=== PATIENT | female | born 1975 | race Caucasian/White ===

== ENCOUNTER 2016-12-20 20:47 | Inpatient (IN) | payer OTHER ==
[~2016-12-20] VITALS: Ht 160 cm; Wt 83.9 kg
--- NOTE | 2016-12-20 21:05 | RAD ---
PROCEDURE CT head without intravenous contrast. HISTORY Stroke protocol, nonverbal, left-sided weakness. TECHNIQUE Axial images are obtained of the head from the skull base through the vertex without IV contrast Exposure: One or more of the following individualized dose reduction techniques were utilized for this examination: 1. Automated exposure control. 2. Adjustment of the mA and/or kV according to patient size. 3. Use of iterative reconstruction technique. COMPARISON None. FINDINGS The ventricles are appropriate in size, shape, and location for the patient's age.No obvious intracranial mass, mass-effect, midline shift, hemorrhage or obvious acute infarction is identified.Basilar cisterns are patent. Bone windows demonstrate no acute calvarial abnormality.The visualized paranasal sinuses appear clear. IMPRESSION 1. No acute intracranial process. Please note that CT can be relatively insensitive to acute ischemic infarction for up to 24 hours after symptom onset. 2. Results phoned to emergency department staff, Dr. Spangler, at 2103 hours. Electronically signed by: Ralph Owens MD (Dec 20, 2016 21:03:59)
[2016-12-20 21:19] LABS: BASO # 0.1 x10^3/uL (0.0-0.2); BASO % 1 % (0-3); EOS % 1 % (0-3); HEMATOCRIT 45.4 % (36.0-47.0); HEMOGLOBIN 15.5 g/dL (12.0-15.5); LYMPH % 34 % (24-48); MEAN CORPUSCULAR HEMOGLOBIN 32 pg (25-35); MEAN CORPUSCULAR HGB CONC 34 g/dL (31-37); MEAN CORPUSCULAR VOLUME 92 fL (79-100); MONO % 6 % (0-9); NEUT % 58 % (31-73); PLATELET COUNT 290 x10^3/uL (140-400); RED BLOOD COUNT 4.92 x10^6/uL (3.50-5.40); RED CELL DISTRIBUTION WIDTH 13.5 % (11.5-14.5); WHITE BLOOD COUNT 11.8 x10^3/uL (4.0-11.0)
[2016-12-20 21:26] LABS: INR 0.9 (0.8-1.1)
[2016-12-20 21:41] LABS: CALCIUM 9.1 mg/dL (8.5-10.1); CREATININE 0.8 mg/dL (0.6-1.0); GFR 79.4; POTASSIUM 3.6 mmol/L (3.5-5.1)
[2016-12-20 21:48] LABS: ALBUMIN 3.7 g/dL (3.4-5.0); ALBUMIN/GLOBULIN RATIO 0.9 (1.0-1.7); TOTAL BILIRUBIN 0.1 mg/dL (0.2-1.0); TOTAL PROTEIN 7.6 g/dL (6.4-8.2)
[2016-12-20] MEDS ORDERED: IV NORMAL SALINE 1000ML BAG 1,000 ML IV ONE (22:15)
[2016-12-20] MEDS: fentaNYL PF VIAL 100 MCG/2 ML VIAL IV PRN (22:58)
[2016-12-20] MEDS ORDERED: CONTRAST GIVEN MC PRN (23:15)
[2016-12-20] MEDS ORDERED: IOHEXOL 350 MG/ML 100 ML VIAL. IV ONE (23:30)
--- NOTE | 2016-12-20 23:31 | ACF ---
Admission Forms Criteria NEUROLOGY GRG Clinical Indications for Admission to Inpatient Care (Place ' X' for any and all applicable criteria): Hospital admission is needed for appropriate care of the patient because of 1 or more of the following: [ ]I. Encephalitis [ ]II. Severe [employer] infections indicated by 1 or more of the following(1)(2)(3) : [ ]a) Intracranial abscess [ ]b) Spinal abscess or myelitis [ ]c) Tuberculous or other nonbacterial, nonviral [employer] infection(8) [ ]III. Vasculitis and 1 or more of the following(14)(15): []a) Altered mental status that is severe or persistent or other acute neurologic change []b) Psychosis []c) Seizure [ ]IV. Status epilepticus or repetitive seizures not controlled with emergent treatment [A] (7)(8) [ ]V. Altered mental status that is severe or persistent [ ]. Transient alteration in consciousness with high-risk etiology; examples include (12)(13): [ ]a) Cardiovascular source [ ]b) Cataplexy [ ]VII. Cerebral aneurysm requiring ANY ONE of the following(14): [ ]a) IV antihypertensives or vasoactive agents [ ]b) Sedation and analgesia for suspected leak [ ]c) Need for external ventricular drainage and cerebral perfusion pressure monitoring [ ]d) Emergent evaluation to determine need for surgical clipping or endovascular coiling by interventional radiology. If surgery is required ( Also use Craniotomy, Supratentorial, for Surgery of Bleeding Intracranial Aneurysm (for bleeding aneurysm) or Craniotomy, Supratentorial (for nonbleeding aneurysm) as appropriate. [X]VIII. New-onset severe neurologic symptom requiring inpatient care indicated by ANY ONE of the following: [ ]a) Aphasia(15) [X]b) Weakness (grade 3 or less) [ ]c) Paralysis (eg, hemiplegia) [ ]d) Spasticity(16) [ ]e) Dystonia [ ]e) Ataxia(17) [ ]f) Amnesia(18) [ ]g) Involuntary movements(19) [ ]h) Vertigo [ ] Visual loss [ ]i) Other severe neurologic finding (eg, papilledema, mass effect on imaging, myoclonus not treatable at alternative level of care (eg, observation care) [ ]IX. Guillain-[place] syndrome(20) [ ]X. Myasthenia gravis crisis or inpatient monitoring need as indicated by 1 or more of the following(21): [ ]a) Intensive treatment (eg, course of plasmapheresis) with inadequate outpatient situation to monitor patients status [ ]b) Inadequate airway protection [ ]c) Respiratory insufficiency requiring intubation or inpatient. monitoring [ ]d) Progressive dysphagia with failure to thrive [ ]XI. Multiple sclerosis or other acute demyelinating disease requiring inpatient care as indicated by 1 or more of the following (22)(23): [ ]a) Acute severe deterioration requiring inpatient treatment (eg, IV steroids, plasmapheresis, close observation) [ ]b) Acute complication requiring inpatient care (eg, sepsis, severe decubitus, aspiration) [ ]XII.Parkinson disease requiring inpatient care (Also use Optimal Recovery Care Criteria or General Recovery Criteria as appropriate) indicated by 1 or more of the following(25): [ ]a) Infection (eg, aspiration pneumonia) not treatable at alternative level of care [ ]b Dehydration that is severe or persistent [ ]c) Life-threatening agitation or psychotic behavior not treatable on emergency, observation care, or alternative level (eg, residential) basis [ ]d) Severe medication withdrawal effects (eg, freezing, neuroleptic malignant syndrome) not responsive to emergency and observation care treatment ( as appropriate) [ ]e) Other severe manifestation not treatable at alternative level of care [ ]XII. Amyotrophic lateral sclerosis with inpatient care needs as indicated by ANY ONE of the following(26): [ ]a) Acute complications (eg, aspiration pneumonia, sepsis ) requiring inpatient care ( see other optimal Recovery Guideline as appropriate) [ ]b) Dehydration that is severe persistent AND artificial support desired [ ]c) Inadequate airway protection AND artificial support desired [ ]d) Severe ventilatory insufficiency AND artificial support desired [ ]XIII. Myasthenia gravis crisis or inpatient monitoring need as indicated by 1 or more of the following(21): [] a) Inadequate airway protection []b) Respiratory insufficiency requiring intubation or inpatient monitoring []c) Progressive dysphagia with failure to thrive []d) Intensive treatment (e.g., course of plasmapheresis) with inadequate outpatient situation to monitor patients status [ ]XIV. Multiple sclerosis or other acute demyelinating disease requiring inpatient care indicated by 1 or more of the following[C](36)(43)(44)(45)(46): []a) Acute severe deterioration requiring inpatient treatment (eg, IV steroids, plasmapheresis, close observation) []b) Acute complication requiring inpatient care (eg, sepsis, severe decubitus, aspiration) [ ]XV. Intracranial hypertension (e.g., pseudotumor cerebri) requiring inpatient care (e.g., acute visual loss, inadequate oral intake) (47)(48)(49) [ ]XVI. Parkinson disease requiring inpatient care (Also use Optimal Recovery Care Criteria or General Recovery Criteria as appropriate) indicated by 1 or more of the following(25): [] a) Infection (e.g., aspiration pneumonia) not treatable at alternative level of care []b) Volume depletion not responsive to emergency and observation care treatment (as appropriate) []c) Life-threatening agitation or psychotic behavior not treatable on emergency, observation care, or alternative level (e.g., residential) basis []d) Severe medication withdrawal effects (e.g., freezing, neuroleptic malignant syndrome) not responsive to emergency and observation care treatment (as appropriate) []e) Other severe manifestation not treatable at alternative level of care [ ]XVII. Amyotrophic lateral sclerosis with inpatient care needs as indicated by1 or more of the following(42): []a) Acute complications (eg, aspiration pneumonia, sepsis) requiring inpatient care (see other Optimal Recovery Guideline or General Recovery Guideline as appropriate) []b) Dehydration that is severe or persistent AND artificial support desired []c) Inadequate airway protection AND artificial support desired []d) Severe ventilatory insufficiency AND artificial support desired [ ]XVIII. Severe myopathy, neuropathy, or other neuromuscular disease indicated by 1 or more of the following(42)(52)(53)(54): []a ) New-onset severe diffuse weakness (eg, strength 3/5 or less) []b) Severe dysphagia []c) Dyspnea at rest or with minimal exertion (new) []d) Inadequate airway protection []e) Inadequate ventilation indicated by 1 or more of the following : i) Partial pressure of carbon dioxide greater than 44 mm Hg ( 5.9 kPa) (new) ii) Reduced peak expiratory flow rate (new) iii) Vital capacity less than 50% of predicted (less than 15 mL/kg) iv) Peak inspiratory force less negative than -30 cm H2O (- 2942 Pa) [ ]XVII.Complications of congenital or degenerative disease (eg, infection, seizures, dehydration, injury) not responsive to emergency and observation care treatment (as appropriate ) [C](16)(29)(30) [ ]XVIII.Suspected or confirmed nerve or muscle toxic injury, including ANY ONE of the following: [ ]a) Rhabdomyolysis(31) i) Acute renal failure ii) Dehydration that is severe or persistent iii) Altered mental status that is severe or persistent iv) Electrolyte abnormality that remains after emergency or observation level care ( as appropriate) [ ]b) Botulism(32) [ ]c) Other severe toxin-induced sign or symptom [ ]XIX. Neurologic trauma requiring inpatient treatment (medical) indicated by ANY ONE of the following(33)(34): [ ]a) Vital signs or neurologic signs more frequently than every 4 hours [ ]b) Hyperosmolar therapy [ ]c) Respiratory monitoring [ ]d) Intracranial pressure monitoring and treatment [ ]e) Stabilization and immobilization device placement (eg, braces, body jacket) [ ]f) Intubation & mechanical ventilation for airway protection or therapeutic hyperventilation [ ]g) Other treatment or monitoring needed that requires inpatient level of care [ ]XX.Complications of neurologic devices (eg, ventricular shunt, neurostimulator) requiring 1 or more of the following(35)(36): [ ]a) IV antibiotics with monitoring while awaiting culture results [ ]b) Monitoring for hydrocephalus [ ]XXI. Neurology condition symptom, or finding for which emergency and observation care have failed or are not considered appropriate. See General Criteria: Observation Care ISC, General Admission Criteria GRG, or Pediatric General Admission Criteria GRG guideline as appropriate. The original [facility] [employer] content created by [facility] has been revised. The portions of the content which have been revised are identified through the use of italic text or in bold, and [facility] has neither reviewed nor approved the modified material. All other unmodified content is copyright [facility] Please see references footnoted in the original [facility] edition 2016 Admission Criteria Met?: Yes ANT ZARATE Dec 20, 2016 23:31
--- NOTE | 2016-12-20 23:35 | PHYS DOC ---
Past Medical History Past Medical History: Seizure Past Surgical History: Other Additional Past Surgical Histo: unable to assess Alcohol Use: Occasionally Drug Use: None Adult General Chief Complaint Chief Complaint: NEURO SYMPTOMS/DEFICITS HPI HPI Patient is a 41 year old female who presents with neurologic symptoms. The patient presents by EMS, unable to speak at time of arrival. EMS states they were called to the home for seizure with left hemiparesis. Reportedly shortly prior to their arrival the patient had a 1 minute seizure able to move her left side or speak after that occurred. She was also complaining of inability to hear out of her left ear or see out of her left eye. Communicating by writing on a piece of paper. She denies pain at time of my exam. Her significant other states that she has a known seizure disorder, discontinued taking medication several months ago. No history of previous neurologic deficit following seizure. No history of TIA or stroke. Review of Systems Review of Systems Unable to obtain due to clinical condition Current Medications Current Medications Current Medications Medications (Trade) Dose Ordered Sig/Catalino Start Time Stop Time Status Last Admin Dose Admin Fentanyl Citrate (Fentanyl 2ml Vial) 50 mcg PRN Q15MIN PRN 12/20/16 22:45 12/21/16 22:44 12/21/16 00:16 50 MCG Info (Do NOT chart on this entry -- for MONITORING) 1 each PRN DAILY PRN 12/20/16 23:15 12/22/16 23:14 Iohexol (Omnipaque 350 Mg/ml) 100 ml 1X ONCE 12/20/16 23:30 12/20/16 23:31 DC Sodium Chloride (Iv Sodium Chloride 0.9% 1000ml Bag) 1,000 ml @ 1,000 mls/hr 1X ONCE 12/20/16 22:15 12/20/16 23:14 DC 12/20/16 22:30 1,000 MLS/HR Allergies Allergies Allergies Coded Allergies Type Severity Reaction Last Updated Verified No Known Drug Allergies 12/20/16 No Physical Exam Physical Exam Constitutional: Obese, no acute distress, non-toxic appearance. HENT: Normocephalic, atraumatic, bilateral external ears normal, TMs clear bilaterally, oropharynx moist, nose normal. Eyes: PERRLA 4 mm bilaterally, EOMI, conjunctiva normal, no discharge. Neck: supple, no stridor. Cardiovascular: RRR, no murmurs, no edema. Lungs & Thorax: LCTAB, no wheezing, no respiratory distress. Abdomen: soft, nontender, nondistended. Skin: Warm, dry, no erythema, no rash. Back: No tenderness. Extremities: No tenderness, no edema. Neurologic: Alert, aphasic but writing on a pad of paper, CN2-12 grossly intact with exception of decreased sensation to left face, no obvious facial droop, no spontaneous movement of LUE or LLE, unable to feel light touch to LUE & LLE, RUE & RLE normal strength/sensation, intact finger to nose & heel to [place] on right side, unable to demonstrate on the left side. Psychologic: flat affect Current Patient Data Vital Signs Vital Signs Date Time Temp Pulse Resp B/P Pulse Ox O2 Delivery O2 Flow Rate FiO2 12/21/16 00:41 84 16 128/71 96 Room Air 12/20/16 20:50 98.3 98.3 Lab Values Laboratory Tests Test 12/20/16 21:00 12/20/16 23:59 White Blood Count 11.8x10^3/uL (4.0-11.0) H Red Blood Count 4.92x10^6/uL (3.50-5.40) Hemoglobin 15.5g/dL (12.0-15.5) Hematocrit 45.4% (36.0-47.0) Mean Corpuscular Volume 92fL (79-100) Mean Corpuscular Hemoglobin 32pg (25-35) Mean Corpuscular Hemoglobin Concent 34g/dL (31-37) Red Cell Distribution Width 13.5% (11.5-14.5) Platelet Count 290x10^3/uL (140-400) Neutrophils (%) (Auto) 58% (31-73) Lymphocytes (%) (Auto) 34% (24-48) Monocytes (%) (Auto) 6% (0-9) Eosinophils (%) (Auto) 1% (0-3) Basophils (%) (Auto) 1% (0-3) Neutrophils # (Auto) 6.9x10^3uL (1.8-7.7) Lymphocytes # (Auto) 4.0x10^3/uL (1.0-4.8) Monocytes # (Auto) 0.7x10^3/uL (0.0-1.1) Eosinophils # (Auto) 0.1x10^3/uL (0.0-0.7) Basophils # (Auto) 0.1x10^3/uL (0.0-0.2) Prothrombin Time 12.0SEC (11.7-14.0) Prothrombin Time INR 0.9 (0.8-1.1) PTT 24SEC (24-38) Sodium Level 139mmol/L (136-145) Potassium Level 3.6mmol/L (3.5-5.1) Chloride Level 103mmol/L (98-107) Carbon Dioxide Level 20mmol/L (21-32) L Anion Gap 16 (6-14) H Blood Urea Nitrogen 11mg/dL (7-20) Creatinine 0.8mg/dL (0.6-1.0) Estimated GFR (Cockcroft-Gault) 79.4 BUN/Creatinine Ratio 14 (6-20) Glucose Level 118mg/dL (70-99) H Lactic Acid Level 2.6mmol/L (0.4-2.0) H Calcium Level 9.1mg/dL (8.5-10.1) Total Bilirubin 0.1mg/dL (0.2-1.0) L Aspartate Amino Transferase (AST) 22U/L (15-37) Alanine Aminotransferase (ALT) 34U/L (14-59) Alkaline Phosphatase 50U/L (46-116) Troponin I Quantitative < 0.017ng/mL (0.000-0.055) Total Protein 7.6g/dL (6.4-8.2) Albumin 3.7g/dL (3.4-5.0) Albumin/Globulin Ratio 0.9 (1.0-1.7) L Ethyl Alcohol Level 183mg/dL (0-10) H Urine Opiates Screen Neg (NEG) Urine Methadone Screen Neg (NEG) Urine Barbiturates Neg (NEG) Urine Phencyclidine Screen Neg (NEG) Urine Amphetamine/Methamphetamine Neg (NEG) Urine Benzodiazepines Screen Neg (NEG) Urine Cocaine Screen Neg (NEG) Urine Cannabinoids Screen Neg (NEG) Urine Ethyl Alcohol Pos (NEG) Laboratory Tests 12/20/16 21:00 Laboratory Tests 12/20/16 21:00 EKG EKG interpreted by me: sinus tachycardia rate 114, no acute ST/T wave changes, normal intervals, no ectopy.[] Radiology/Procedures Radiology/Procedures PROCEDURE: CT CODE STROKE HEAD WO PROCEDURE CT head without intravenous contrast. HISTORY Stroke protocol, nonverbal, left-sided weakness. TECHNIQUE Axial images are obtained of the head from the skull base through the vertex without IV contrast Exposure: One or more of the following individualized dose reduction techniques were utilized for this examination: 1. Automated exposure control. 2. Adjustment of the mA and/or kV according to patient size. 3. Use of iterative reconstruction technique. COMPARISON None. FINDINGS The ventricles are appropriate in size, shape, and location for the patient's age.No obvious intracranial mass, mass-effect, midline shift, hemorrhage or obvious acute infarction is identified.Basilar cisterns are patent. Bone windows demonstrate no acute calvarial abnormality.The visualized paranasal sinuses appear clear. IMPRESSION 1. No acute intracranial process. Please note that CT can be relatively insensitive to acute ischemic infarction for up to 24 hours after symptom onset. 2. Results phoned to emergency department staff, Dr. Spangler, at 2103 hours. Electronically signed by: Ralph Phoenix MD (Dec 20, 2016 21:03:59) DICTATED and SIGNED BY: RALPH PHOENIX MD DATE: 12/20/162102 CXR: interpreted by me: no cardiomegaly, no infiltrate, no pneumothorax, narrow mediastinum, no acute process. [facility] [address] [place] [address] IMAGING REPORT Signed PATIENT: MILES CARTWRIGHT ACCOUNT: [id number] : 1975 LOCATION: ER AGE: 41 SEX: F EXAM STATUS: REG ER ORD. PHYSICIAN: KIMO SPANGLER MD REASON: left hemiparesis PROCEDURE: CT ANGIOGRAPHY HEAD PROCEDURE CTA head with without contrast HISTORY Left hemiparesis TECHNIQUE Noncontrast helical CT scanning of brain was performed. After IV infusion of 100 cc of Optiray 350, repeat helical CT scanning of the brain was performed. Axial and coronal and sagittal reconstructions were generated and reviewed on a computer monitor. Using a MIP algorithm, a 3-D angiogram was reconstructed and reviewed on a computer monitor. FINDINGS No aneurysm is seen involving the [place] of [place]. No significant stenosis is seen. No occlusive disease is seen. No abnormal contrast-enhancing lesion or mass lesion is seen. No abnormal "tuft" of vessels is seen. Therefore, no AVM is identified. 3-D ANGIOGRAM No significant stenosis or occlusive disease is seen. No aneurysm or AVM is seen. Head CT: No acute intracranial hemorrhage or midline shift or mass-effect or hydrocephalus or extra-axial fluid collection is seen. No focal hypodense area is seen to suggest acute infarct or edema radiographically. IMPRESSION No acute findings. ] PQRS Statement: One or more of the following individualized dose reduction techniques were utilized for this study: 1. Automated exposure control. 2. Adjustment of the mA and/or kV according to patient size. 3. Use of iterative reconstruction technique. Electronically signed by: Kanwal Muñoz MD (Dec 21, 2016 00:52:19) DICTATED and SIGNED BY: KANWAL MUÑOZ III, MD DATE: 12/21/16 0052 CC: ANGELIC SMALL MD; KIMO SPANGLER MD; ESCOBAR REYNOSO MD ~ [] Course & Med Decision Making Course & Med Decision Making Pertinent Labs and Imaging studies reviewed. (See chart for details) The patient presents with neurologic deficit. Left hemiparesis, aphasic, loss of vision & hearing on affected side. NIH was 15. CT head obtained upon arrival, negative for acute process. Discussed with Dr. Warren, recommends stat brain MRI without contrast. food technician came but there are technical difficulties , machine not powering on, he is contacting equipment petroleum products sales representative but could be very prolonged process. Discussed with Dr. Warren, recommends CTA head only. This has been obtained but not interpreted at the end of my shift. Patient now able to speak, attempting some movement of LUE & LLE, slight increased sensation. Symptoms seem to be improving. With seizure, would not be a candidate for TPA if this were related to CVA, & now symptoms improving. Alternative possibility is Keshav's paralysis. Will transfer care to Dr. Small to follow up results of CTA & either admit here or transfer for neurointervention. I have spoken to Dr. Mora & he will accept the patient if she stays here at [facility]. The patient is in stable condition at the end of my shift. Kimo Spangler MD Addendum note by Dr. Angelic Small M.D. at 0110: I see him care of patient from Dr. Paige at 0005. I followed up with the patient's CTA results which did not reveal any acute abnormalities. I spoke with Dr. Warren regarding findings. At this time we will admit the patient to the hospital for further evaluation and treatment. Patient admitted in stable condition. [] Dragon Disclaimer Dragon Disclaimer This electronic medical record was generated, in whole or in part, using a voice recognition dictation system. Departure Departure Impression: Primary Impression: Left hemiparesis Additional Impressions: Seizure Alcohol intoxication Disposition: ADMITTED INPATIENT Admitting Physician: Kath Mora Condition: STABLE Problem Qualifiers Additional Impressions: Alcohol intoxication Complication of substance-induced condition: with unspecified complication Qualified Code: F10.129 - Alcohol abuse with intoxication, unspecified KIMO SPANGLER MD Dec 20, 2016 23:35 ANGELIC SMALL MD Dec 21, 2016 01:11
[2016-12-21 00:15] LABS: BARBITURATES NEG (NEG); BENZODIAZEPINES NEG (NEG); CANNABINOIDS NEG (NEG); COCAINE NEG (NEG); METHADONE NEG (NEG); OPIATES NEG (NEG); PHENCYCLIDINE NEG (NEG)
[2016-12-21] MEDS: fentaNYL PF VIAL 100 MCG/2 ML VIAL IV PRN (00:16)
--- NOTE | 2016-12-21 00:54 | RAD ---
PROCEDURE CTA head with without contrast HISTORY Left hemiparesis TECHNIQUE Noncontrast helical CT scanning of brain was performed. After IV infusion of 100 cc of Optiray 350, repeat helical CT scanning of the brain was performed. Axial and coronal and sagittal reconstructions were generated and reviewed on a computer monitor. Using a MIP algorithm, a 3-D angiogram was reconstructed and reviewed on a computer monitor. FINDINGS No aneurysm is seen involving the [place] of [place]ugh. No significant stenosis is seen. No occlusive disease is seen. No abnormal contrast-enhancing lesion or mass lesion is seen. No abnormal "tuft" of vessels is seen. Therefore, no AVM is identified. 3-D ANGIOGRAM No significant stenosis or occlusive disease is seen. No aneurysm or AVM is seen. Head CT: No acute intracranial hemorrhage or midline shift or mass-effect or hydrocephalus or extra-axial fluid collection is seen. No focal hypodense area is seen to suggest acute infarct or edema radiographically. IMPRESSION No acute findings. ] PQRS Statement: One or more of the following individualized dose reduction techniques were utilized for this study: 1. Automated exposure control. 2. Adjustment of the mA and/or kV according to patient size. 3. Use of iterative reconstruction technique. Electronically signed by: Julian Suarez MD (Dec 21, 2016 00:52:19)
[2016-12-21] MEDS ORDERED: ONDANSETRON PF 4 MG/2 ML VIAL. IV PRN (01:15)
[2016-12-21] MEDS ORDERED: ACETAMINOPHEN 325 MG TABLET. PO PRN (01:15)
[2016-12-21] MEDS ORDERED: ASPIRIN 325 MG TABLET PO ONE (01:30)
[2016-12-21] MEDS: IV NORMAL SALINE 1000ML BAG 1,000 ML IV SCH ×2 (02:16→11:13)
[2016-12-21 03:29] VITALS: BP 142/79
[2016-12-21 07:00] VITALS: BP 132/76
--- NOTE | 2016-12-21 07:44 | EKG ---
[facility] [address] [place] [address] Test Date: 2016-12-20 Test Time: 21:02:56 Pat Name: MILES CARTWRIGHT Department: Room: 562 1 Gender: F Nurse Assessor: : 1975 Requested By: KIMO MCFADDEN Order Number: [id number] Reading MD: Yakov Ribeiro Measurements Intervals Gibbs Rate: 114 P: 40 ID: [id number] QRS: -9 QRSD: 72 T: 22 QT: 312 QTc: 433 Interpretive Statements SINUS TACHYCARDIA Electronically Signed On 12-24-2016 9:51:35 CDT by Yakov Ribeiro
--- NOTE | 2016-12-21 08:36 | RAD ---
Portable AP upright view CXR: Clinical indications: CVA. Code stroke.. Comparison: None available. Findings: No acute lung infiltrate or pleural effusion or pulmonary edema or lung mass or pneumothorax is seen. The heart size, pulmonary vasculature, mediastinum and both lina are unremarkable. Impression: No acute radiographic abnormality is seen.
[2016-12-21 11:00] VITALS: BP 127/80
--- NOTE | 2016-12-21 11:57 | PDOC1 ---
History and Physical Current Problem List Problem List Problems Medical Problems: (1) Alcohol intoxication Status: Acute (2) Left hemiparesis Status: Acute (3) Seizure Status: Acute Current Medications Current Medications Current Medications Medications (Trade) Dose Ordered Sig/Catalino Start Time Stop Time Status Last Admin Dose Admin Acetaminophen (Tylenol) 650 mg PRN Q4HRS PRN 12/21/16 01:15 12/22/16 01:14 12/21/16 11:34 Aspirin (Stefany Aspirin) 325 mg DAILYWBKFT 12/21/16 12:00 Fentanyl Citrate (Fentanyl 2ml Vial) 50 mcg PRN Q15MIN PRN 12/20/16 22:45 12/21/16 22:44 12/21/16 00:16 Info (Do NOT chart on this entry -- for MONITORING) 1 each PRN DAILY PRN 12/20/16 23:15 12/22/16 23:14 Iohexol (Omnipaque 350 Mg/ml) 100 ml 1X ONCE 12/20/16 23:30 12/20/16 23:31 DC Ondansetron HCl 4 mg 4 mg PRN Q8HRS PRN 12/21/16 01:15 12/22/16 01:14 Sodium Chloride (Iv Sodium Chloride 0.9% 1000ml Bag) 1,000 ml @ 100 mls/hr Q10H 12/21/16 01:13 12/22/16 01:12 12/21/16 02:16 Allergies Allergies Allergies Coded Allergies Type Severity Reaction Last Updated Verified erythromycin base Allergy Intermediate 12/21/16 Yes codeine Allergy Unknown 12/21/16 Yes ROS Review of System CONSTITUTIONAL: No fever or chills EYES: No recent changes SKIN: No rash or itching CARDIOVASCULAR: No chest pain, syncope, palpitations, or edema RESPIRATORY: No SOB or cough GASTROINTESTINAL: No nausea, vomiting or abdominal pain NEUROLOGICAL: left upper extremity subjective weakness, loss of sensations ENDOCRINE: No cold or heat intolerance GENITOURINARY: No urgency or frequency of urination MUSCULOSKELETAL: No back pain or joint pain LYMPHATICS: No enlarged lymph nodes PSYCHIATRIC: No anxiety or depression Physical Exam Physical Exam GEN.: No apparent distress. Alert and oriented. HEENT: Head is normocephalic, atraumatic NECK: Supple. LUNGS: Clear to auscultation. HEART: RRR, S1, S2 present. Peripheral pulses intact ABDOMEN: Soft, nontender. Positive bowel sounds. EXTREMITIES: Without any cyanosis. NEUROLOGIC: Normal speech, normal tone, no focal defects een PSYCHIATRIC: Normal affect, normal mood. SKIN: No ulcerations Vitals Vitals Vital Signs Date Time Temp Pulse Resp B/P Pulse Ox O2 Delivery O2 Flow Rate FiO2 12/21/16 11:00 98.0 86 18 127/80 97 Room Air 98.0 Labs Labs Laboratory Tests Test 12/20/16 21:00 12/20/16 23:59 White Blood Count 11.8x10^3/uL (4.0-11.0) Red Blood Count 4.92x10^6/uL (3.50-5.40) Hemoglobin 15.5g/dL (12.0-15.5) Hematocrit 45.4% (36.0-47.0) Mean Corpuscular Volume 92fL (79-100) Mean Corpuscular Hemoglobin 32pg (25-35) Mean Corpuscular Hemoglobin Concent 34g/dL (31-37) Red Cell Distribution Width 13.5% (11.5-14.5) Platelet Count 290x10^3/uL (140-400) Neutrophils (%) (Auto) 58% (31-73) Lymphocytes (%) (Auto) 34% (24-48) Monocytes (%) (Auto) 6% (0-9) Eosinophils (%) (Auto) 1% (0-3) Basophils (%) (Auto) 1% (0-3) Neutrophils # (Auto) 6.9x10^3uL (1.8-7.7) Lymphocytes # (Auto) 4.0x10^3/uL (1.0-4.8) Monocytes # (Auto) 0.7x10^3/uL (0.0-1.1) Eosinophils # (Auto) 0.1x10^3/uL (0.0-0.7) Basophils # (Auto) 0.1x10^3/uL (0.0-0.2) Prothrombin Time 12.0SEC (11.7-14.0) Prothromb Time International Ratio 0.9 (0.8-1.1) Activated Partial Thromboplast Time 24SEC (24-38) Sodium Level 139mmol/L (136-145) Potassium Level 3.6mmol/L (3.5-5.1) Chloride Level 103mmol/L (98-107) Carbon Dioxide Level 20mmol/L (21-32) Anion Gap 16 (6-14) Blood Urea Nitrogen 11mg/dL (7-20) Creatinine 0.8mg/dL (0.6-1.0) Estimated GFR (Cockcroft-Gault) 79.4 BUN/Creatinine Ratio 14 (6-20) Glucose Level 118mg/dL (70-99) Lactic Acid Level 2.6mmol/L (0.4-2.0) Calcium Level 9.1mg/dL (8.5-10.1) Total Bilirubin 0.1mg/dL (0.2-1.0) Aspartate Amino Transf (AST/SGOT) 22U/L (15-37) Alanine Aminotransferase (ALT/SGPT) 34U/L (14-59) Alkaline Phosphatase 50U/L (46-116) Troponin I Quantitative < 0.017ng/mL (0.000-0.055) Total Protein 7.6g/dL (6.4-8.2) Albumin 3.7g/dL (3.4-5.0) Albumin/Globulin Ratio 0.9 (1.0-1.7) Ethyl Alcohol Level 183mg/dL (0-10) Urine Opiates Screen Neg (NEG) Urine Methadone Screen Neg (NEG) Urine Barbiturates Neg (NEG) Urine Phencyclidine Screen Neg (NEG) Urine Amphetamine/Methamphetamine Neg (NEG) Urine Benzodiazepines Screen Neg (NEG) Urine Cocaine Screen Neg (NEG) Urine Cannabinoids Screen Neg (NEG) Urine Ethyl Alcohol Pos (NEG) Laboratory Tests Test 12/20/16 21:00 12/20/16 23:59 White Blood Count 11.8x10^3/uL (4.0-11.0) Red Blood Count 4.92x10^6/uL (3.50-5.40) Hemoglobin 15.5g/dL (12.0-15.5) Hematocrit 45.4% (36.0-47.0) Mean Corpuscular Volume 92fL (79-100) Mean Corpuscular Hemoglobin 32pg (25-35) Mean Corpuscular Hemoglobin Concent 34g/dL (31-37) Red Cell Distribution Width 13.5% (11.5-14.5) Platelet Count 290x10^3/uL (140-400) Neutrophils (%) (Auto) 58% (31-73) Lymphocytes (%) (Auto) 34% (24-48) Monocytes (%) (Auto) 6% (0-9) Eosinophils (%) (Auto) 1% (0-3) Basophils (%) (Auto) 1% (0-3) Neutrophils # (Auto) 6.9x10^3uL (1.8-7.7) Lymphocytes # (Auto) 4.0x10^3/uL (1.0-4.8) Monocytes # (Auto) 0.7x10^3/uL (0.0-1.1) Eosinophils # (Auto) 0.1x10^3/uL (0.0-0.7) Basophils # (Auto) 0.1x10^3/uL (0.0-0.2) Prothrombin Time 12.0SEC (11.7-14.0) Prothromb Time International Ratio 0.9 (0.8-1.1) Activated Partial Thromboplast Time 24SEC (24-38) Sodium Level 139mmol/L (136-145) Potassium Level 3.6mmol/L (3.5-5.1) Chloride Level 103mmol/L (98-107) Carbon Dioxide Level 20mmol/L (21-32) Anion Gap 16 (6-14) Blood Urea Nitrogen 11mg/dL (7-20) Creatinine 0.8mg/dL (0.6-1.0) Estimated GFR (Cockcroft-Gault) 79.4 BUN/Creatinine Ratio 14 (6-20) Glucose Level 118mg/dL (70-99) Lactic Acid Level 2.6mmol/L (0.4-2.0) Calcium Level 9.1mg/dL (8.5-10.1) Total Bilirubin 0.1mg/dL (0.2-1.0) Aspartate Amino Transf (AST/SGOT) 22U/L (15-37) Alanine Aminotransferase (ALT/SGPT) 34U/L (14-59) Alkaline Phosphatase 50U/L (46-116) Troponin I Quantitative < 0.017ng/mL (0.000-0.055) Total Protein 7.6g/dL (6.4-8.2) Albumin 3.7g/dL (3.4-5.0) Albumin/Globulin Ratio 0.9 (1.0-1.7) Ethyl Alcohol Level 183mg/dL (0-10) Urine Opiates Screen Neg (NEG) Urine Methadone Screen Neg (NEG) Urine Barbiturates Neg (NEG) Urine Phencyclidine Screen Neg (NEG) Urine Amphetamine/Methamphetamine Neg (NEG) Urine Benzodiazepines Screen Neg (NEG) Urine Cocaine Screen Neg (NEG) Urine Cannabinoids Screen Neg (NEG) Urine Ethyl Alcohol Pos (NEG) VTE Prophylaxis Ordered VTE Prophylaxis Devices: Yes VTE Pharmacological Prophylaxi: Yes JIMENA PAVON MD Dec 21, 2016 11:57
[2016-12-21] MEDS ORDERED: ASPIRIN 325 MG TABLET PO SCH (12:00)
[2016-12-21] MEDS ORDERED: ALPRAZolam 0.25 MG TABLET PO PRN (12:00)
--- NOTE | 2016-12-21 12:41 | HP ---
ADMIT DATE: 12/21/2016 CHIEF COMPLAINT: Neural symptoms. HISTORY OF THE PRESENT ILLNESS: A 41-year-old female patient with prior history of seizure-like activity, non-epileptic, never been on any medication, who presented to the ER by EMS with reported seizure-like activity and left upper extremity and lower extremity decreased sensations and weakness. Most of the history was obtained from the patient's chart and the patient. She states she is under severe stress due to her job related condition. She had a seizure-like activity, later she could not talk for a while, and also she was noted to have left upper extremity and lower extremity weakness and loss of sensations. Symptoms were recalled after some time. She was admitted to the hospital for TIA workup and Neurology consultation. At the time of my examination, the patient states that she is back to her baseline. No anxiety, no stress, and no weakness. No focal deficits. She has never been on any medications in the past. She denies any past medical conditions such as hypertension or diabetes. PAST MEDICAL HISTORY: Seizure-like activity, nonepileptic. PAST SURGICAL HISTORY: None. PERSONAL HISTORY: No smoking. Occasionally takes alcohol. No drug abuse. FAMILY HISTORY: Unknown to the patient. REVIEW OF SYSTEMS: Please see my electronic H and P. PHYSICAL EXAMINATION: Please see my electronic H and P. ALLERGIES: CODIENE, ERYTHROMYCIN. LABORATORY DATA: Chemistries within normal limits except for anion gap 16. Hematology: WBC 11.8, hemoglobin 15.5, MCV 92, and platelets 290. Toxicology screen: Negative except for alcohol 183. Imaging Studies: CT of head, no acute process seen and CTA of the brain showed no acute findings seen. Chest X-ray: No acute process seen. ASSESSMENT AND PLAN: Questionable seizure-like activity with subjective left upper extremity weakness and lower extremity weakness, possible, due to severe anxiety. No focal deficits seen. Imaging studies did not show any kind of acute process. I will wait for Neurology's recommendations. Meanwhile, I will start her on IV hydration, and also I will start her on Xanax for anxiety. The patient admits that she is in stress due to her condition in job. Also, I will order physical therapy and occupational therapy. The patient's symptoms are improved. I anticipate discharge today. If not, for further workup, I will keep her here. JIMENA PAVON MD DR: Tang JOB#: [id number] / [id number] EMILIANO
--- NOTE | 2016-12-21 15:20 | PDOC2 ---
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 Seizure in past induced by emotional stress. Left side weakness, resolved. Alcohol intoxication. Obesity. RECOMMENDATIONS/PLAN: Vit B1 [address] and CTA performed in the ER on 12/20 but no acute abnormal findings. No AED is recommended for a single non-epileptic seizure. Substance abstinence. FU with PCP. Weight reduction. Emotional stress reduction. HISTORY OF THE PRESENT ILLNESS: 41-y-old female patient with Hx of stress induced seizure or seizure like episodes in the past stating last one was about 1 year ago and never take AEDs. She had a seizure or seizure like episode on 12/20 with complaints of left side UE weakness to coma to the ER of [facility]. No cranial nerve deficits. Her CT and CTA performed while she was in the ER were all negative. No MRI performed due to machine not working. Her symptoms resolved then. She stated she had seizures in the past but all induced by emortionsl stress nad never treated with AEDs. Her last seizure like episode was about 1 year ago. No LOC. No typical epileptic seizure descriptions. PAST MEDICAL HISTORY: Please see above. PAST SURGERY HISTORY: No major surgery recently. ALLERGY: Codiene Erythromycin MEDICATIONS: Refer to [facility] FAMILY HISTORY: Non contributory. SOCIAL HISTORY: Lives at home. Alcohol level 183 in UDS. REVIEW OF SYSTEMS: Constitutional: No malnutrition, weight loss, cachexia. Head: No traumatic brain or head injury. Skin: No edema, or rash. Ear: No infection. Eyes: No vision loss or color blindness. Nose: No bleeding or purulent discharges. Hearing: No hearing decrease. Neck: No injury. Breast: No history of cancer, masses,or discharges. Cardiac: No [place], arrhythmia. Pulmonary: No COPD. GI: No GI ulcer, GI bleeding. Urinary/genital: No dysuria, incontinence, urinary retention Endocrinologic: Obesity Skeletomuscular: No muscular atrophy, deformity,. Neurological: see HP. Psychiatric: Alcohol abuse. Otherwise, not [id number] review of systems. PHYSICAL EXAMINATION: General appearance is in no acute distress. HEENT: Normocephalic and nontraumatic. Eyes, nose, ears, and throat are unremarkable. Neck is supple. No lymphadenopathy. No crepitus. Cardiovascular: S1, S2, regular rate and rhythm. Pulmonary: Clear to auscultation bilaterally. Abdomen: Bowel sounds are positive. Abdomen is soft, nontender, and nondistended. Extremities: No rash, lesions, or edema. No restriction of range of motion NEUROLOGICAL EXAMINATION: Alert Oriented to time, place and person. PERRL. EOMI. CN: no focal findings. Muscle tone: within normal. Muscle strength: 5 DTR: 2 Plantar reflex: Flexor response bilaterally Gait: At baseline normal. Sensory exam: no abnormal findings. No acute cerebellar signs elicited. Current Medications Current Medications Current Medications Sodium Chloride (Iv Sodium Chloride 0.9% 1000ml Bag) 1,000 ml @ 1,000 mls/hr 1X ONCE IV Last administered on 12/20/16 22:30; Start 12/20/16 at 22:15; Stop 12/20/16 at 23:14; Status DC Fentanyl Citrate (Fentanyl 2ml Vial) 50 mcg PRN Q15MIN PRN IV PAIN GREATER THAN 3/10 Last administered on 12/21/16 00:16; Start 12/20/16 at 22:45; Stop at 22:44 Iohexol (Omnipaque 350 Mg/ml) 100 ml 1X ONCE IV ; Start 12/20/16 at 23:30; Stop 12/20/16 at 23:31; Status DC Info (Do NOT chart on this entry -- for MONITORING) 1 each PRN DAILY PRN MC SEE COMMENTS; Start 12/20/16 at 23:15; Stop 12/22/16 at 23:14 Ondansetron HCl 4 mg 4 mg PRN Q8HRS PRN IV NAUSEA/VOMITING; Start 12/21/16 at 01:15; Stop 12/22/16 at 01:14 Sodium Chloride (Iv Sodium Chloride 0.9% 1000ml Bag) 1,000 ml @ 100 mls/hr Q10H IV Last administered on 12/21/16 02:16; Start 12/21/16 at 01:13; Stop 12/22/16 at 01:12 Acetaminophen (Tylenol) 650 mg PRN Q4HRS PRN PO FEVER Last administered on 12/21 11:34; Start 12/21/16 at 01:15; Stop 12/22/16 at 01:14 Aspirin (Patterns Aspirin) 325 mg 1X ONCE PO Last administered on 12/21/16t 02:19 ; Start 12/21/16 at 01:30; Stop 12/21/16 at 01:31; Status DC Aspirin (Stefany Aspirin) 325 mg DAILYWBKFT PO ; Start 12/21/16 at 12:00 Alprazolam (Xanax) 0.25 mg PRN Q8HRS PRN PO ANXIETY / AGITATION; Start at 12:00 Active Scripts Active No Active Prescriptions or Reported Medications Allergies Allergies: Coded Allergies: erythromycin base (Verified Allergy, Intermediate, 12/21/16) codeine (Verified Allergy, Unknown, 12/21/16) Vitals VITALS Vital Signs Date Time Temp Pulse Resp B/P Pulse Ox O2 Delivery O2 Flow Rate FiO2 12/21/16 12:48 Room Air 12/21/16 11:00 98.0 86 18 127/80 97 98.0 Labs Labs Laboratory Tests Test 12/20/16 21:00 12/20/16 23:59 White Blood Count 11.8x10^3/uL (4.0-11.0) Red Blood Count 4.92x10^6/uL (3.50-5.40) Hemoglobin 15.5g/dL (12.0-15.5) Hematocrit 45.4% (36.0-47.0) Mean Corpuscular Volume 92fL (79-100) Mean Corpuscular Hemoglobin 32pg (25-35) Mean Corpuscular Hemoglobin Concent 34g/dL (31-37) Red Cell Distribution Width 13.5% (11.5-14.5) Platelet Count 290x10^3/uL (140-400) Neutrophils (%) (Auto) 58% (31-73) Lymphocytes (%) (Auto) 34% (24-48) Monocytes (%) (Auto) 6% (0-9) Eosinophils (%) (Auto) 1% (0-3) Basophils (%) (Auto) 1% (0-3) Neutrophils # (Auto) 6.9x10^3uL (1.8-7.7) Lymphocytes # (Auto) 4.0x10^3/uL (1.0-4.8) Monocytes # (Auto) 0.7x10^3/uL (0.0-1.1) Eosinophils # (Auto) 0.1x10^3/uL (0.0-0.7) Basophils # (Auto) 0.1x10^3/uL (0.0-0.2) Prothrombin Time 12.0SEC (11.7-14.0) Prothromb Time International Ratio 0.9 (0.8-1.1) Activated Partial Thromboplast Time 24SEC (24-38) Sodium Level 139mmol/L (136-145) Potassium Level 3.6mmol/L (3.5-5.1) Chloride Level 103mmol/L (98-107) Carbon Dioxide Level 20mmol/L (21-32) Anion Gap 16 (6-14) Blood Urea Nitrogen 11mg/dL (7-20) Creatinine 0.8mg/dL (0.6-1.0) Estimated GFR (Cockcroft-Gault) 79.4 BUN/Creatinine Ratio 14 (6-20) Glucose Level 118mg/dL (70-99) Lactic Acid Level 2.6mmol/L (0.4-2.0) Calcium Level 9.1mg/dL (8.5-10.1) Total Bilirubin 0.1mg/dL (0.2-1.0) Aspartate Amino Transf (AST/SGOT) 22U/L (15-37) Alanine Aminotransferase (ALT/SGPT) 34U/L (14-59) Alkaline Phosphatase 50U/L (46-116) Troponin I Quantitative < 0.017ng/mL (0.000-0.055) Total Protein 7.6g/dL (6.4-8.2) Albumin 3.7g/dL (3.4-5.0) Albumin/Globulin Ratio 0.9 (1.0-1.7) Ethyl Alcohol Level 183mg/dL (0-10) Urine Opiates Screen Neg (NEG) Urine Methadone Screen Neg (NEG) Urine Barbiturates Neg (NEG) Urine Phencyclidine Screen Neg (NEG) Urine Amphetamine/Methamphetamine Neg (NEG) Urine Benzodiazepines Screen Neg (NEG) Urine Cocaine Screen Neg (NEG) Urine Cannabinoids Screen Neg (NEG) Urine Ethyl Alcohol Pos (NEG) Laboratory Tests Test 12/20/16 21:00 12/20/16 23:59 White Blood Count 11.8x10^3/uL (4.0-11.0) Red Blood Count 4.92x10^6/uL (3.50-5.40) Hemoglobin 15.5g/dL (12.0-15.5) Hematocrit 45.4% (36.0-47.0) Mean Corpuscular Volume 92fL (79-100) Mean Corpuscular Hemoglobin 32pg (25-35) Mean Corpuscular Hemoglobin Concent 34g/dL (31-37) Red Cell Distribution Width 13.5% (11.5-14.5) Platelet Count 290x10^3/uL (140-400) Neutrophils (%) (Auto) 58% (31-73) Lymphocytes (%) (Auto) 34% (24-48) Monocytes (%) (Auto) 6% (0-9) Eosinophils (%) (Auto) 1% (0-3) Basophils (%) (Auto) 1% (0-3) Neutrophils # (Auto) 6.9x10^3uL (1.8-7.7) Lymphocytes # (Auto) 4.0x10^3/uL (1.0-4.8) Monocytes # (Auto) 0.7x10^3/uL (0.0-1.1) Eosinophils # (Auto) 0.1x10^3/uL (0.0-0.7) Basophils # (Auto) 0.1x10^3/uL (0.0-0.2) Prothrombin Time 12.0SEC (11.7-14.0) Prothromb Time International Ratio 0.9 (0.8-1.1) Activated Partial Thromboplast Time 24SEC (24-38) Sodium Level 139mmol/L (136-145) Potassium Level 3.6mmol/L (3.5-5.1) Chloride Level 103mmol/L (98-107) Carbon Dioxide Level 20mmol/L (21-32) Anion Gap 16 (6-14) Blood Urea Nitrogen 11mg/dL (7-20) Creatinine 0.8mg/dL (0.6-1.0) Estimated GFR (Cockcroft-Gault) 79.4 BUN/Creatinine Ratio 14 (6-20) Glucose Level 118mg/dL (70-99) Lactic Acid Level 2.6mmol/L (0.4-2.0) Calcium Level 9.1mg/dL (8.5-10.1) Total Bilirubin 0.1mg/dL (0.2-1.0) Aspartate Amino Transf (AST/SGOT) 22U/L (15-37) Alanine Aminotransferase (ALT/SGPT) 34U/L (14-59) Alkaline Phosphatase 50U/L (46-116) Troponin I Quantitative < 0.017ng/mL (0.000-0.055) Total Protein 7.6g/dL (6.4-8.2) Albumin 3.7g/dL (3.4-5.0) Albumin/Globulin Ratio 0.9 (1.0-1.7) Ethyl Alcohol Level 183mg/dL (0-10) Urine Opiates Screen Neg (NEG) Urine Methadone Screen Neg (NEG) Urine Barbiturates Neg (NEG) Urine Phencyclidine Screen Neg (NEG) Urine Amphetamine/Methamphetamine Neg (NEG) Urine Benzodiazepines Screen Neg (NEG) Urine Cocaine Screen Neg (NEG) Urine Cannabinoids Screen Neg (NEG) Urine Ethyl Alcohol Pos (NEG) JUVENTINO WATSON MD Dec 21, 2016 15:20
--- NOTE | 2016-12-21 15:44 | PDOC3 ---
Discharge Summary* Admitting Diagnosis Problems Medical Problems: (1) Alcohol intoxication Status: Acute (2) Left hemiparesis Status: Acute (3) Seizure Status: Acute Final Diagnosis Severe anxiety Alcohol intake excessive hx of seizures Brief Hospital Course Ms. Pena is a 41 old female who presented with left upper extremity weakness, subjective symptoms, resolved before her arrival to the hospital, work up negative, seen by neurology, CT/ CTA negative, deemed stable to go home , recommend to follow up with PCP for further work up. No Active Prescriptions or Reported Meds Time Spent Total time spent with patient [] minutes for coordination of care, counseling, and education. JIMENA PAVON MD Dec 21, 2016 15:44
[2016-12-21] MEDS ORDERED: THIAMINE 100 MG TABLET. PO SCH (16:00)
== END 2016-12-21 14:30 | disposition home or self-care (01) | DRG 880 ==
LOC: ER 20:50 → 5 SOUTH 12-21 00:57
PROVIDERS: ADMIT Internal Medicine; ATTEND Internal Medicine
DX: F41.9 Anxiety disorder, unspecified (principal); G81.94 Hemiplegia, unspecified affecting left nondominant side; F10.129 Alcohol abuse with intoxication, unspecified; E66.9 Obesity, unspecified; Y90.6 Blood alcohol level of 120-199 mg/100 ml; Z68.32 Body mass index [BMI] 32.0-32.9, adult; Z88.6 Allergy status to analgesic agent; Z88.1 Allergy status to other antibiotic agents
CPT/HCPCS: 36415; 70450; 70496; 71010; 80053; 83605; 84484; 85027; 85610; 85730; 93005; 96361; 96374; 96376; G0480; G0481; J3010; J7030; 99285-25